=== PATIENT | male | born 1960 | race Caucasian/White ===

== ENCOUNTER 2024-12-23 07:13 | Outpatient (CLI) | payer MEDICARE, OTHER, SELFPAY ==
--- NOTE | 2024-12-23 07:20 | CT_ITS ---
WS: [id number] CT HEAD TECHNIQUE: Noncontrast CT of the head obtained from the skullbase to the vertex. CLINICAL INFORMATION: BALANCE PROBLEM/HX OF ISCHEMIC TIA/SYNCOPE COMPARISON: CT 2010 DLP: 1205.[address] scans at [facility] use at least one of these dose optimization techniques: automated exposure control; mA and/or kV adjustment per patient size (includes targeted exams where dose is matched to clinical indication); or iterative reconstruction. FINDINGS: No evidence of intracranial hemorrhage or mass effect. Ventricular system and basal cisterns are patent. Mild small vessel changes with mild parenchymal volume loss. No extra-axial fluid collections. No evidence of mass or mass effect. Normal nance-white differentiation. Vascular calcification. Paranasal sinuses and mastoid air cells are well aerated. .Normal visualized soft tissues. CT/CT head wo con* [id number] IMPRESSION: 1. No evidence of intracranial hemorrhage or mass effect. 2. Mild small vessel changes with mild parenchymal volume loss progressed sinc e 2009 3. Vascular calcification. 4. No acute intracranial findings.
== END 2024-12-23 07:14 | disposition home or self-care (01) ==
PROVIDERS: PCP Family Medicine; Visit Provider Family Medicine
DX: R55 Syncope and collapse (principal); R27.9 Unspecified lack of coordination; Z86.73 Personal history of transient ischemic attack (TIA), and cerebral infarction without residual deficits; I67.2 Cerebral atherosclerosis; I67.89 Other cerebrovascular disease; R90.89 Other abnormal findings on diagnostic imaging of central nervous system
CPT/HCPCS: 70450

== ENCOUNTER → 2025-01-10 08:31 | Outpatient (BNVA) | payer MEDICARE, OTHER, SELFPAY | PROVIDERS: PCP Family Medicine; Referring Provider Family Medicine; Visit Provider Nurse Practitioner | DX: R55 Syncope and collapse (principal) | CPT/HCPCS: 99204 ==

== ENCOUNTER → 2025-01-21 11:47 | Outpatient (BNVA) | payer MEDICARE, OTHER, SELFPAY | PROVIDERS: Absent Provider Specialist; PCP Family Medicine; Referring Provider Nurse Practitioner; Visit Provider Nurse Practitioner | DX: R56.9 Unspecified convulsions (principal); R26.89 Other abnormalities of gait and mobility; R26.9 Unspecified abnormalities of gait and mobility | CPT/HCPCS: 95816 ==

== ENCOUNTER → 2025-01-28 14:02 | Outpatient (BNVA) | payer MEDICARE, OTHER, SELFPAY | PROVIDERS: PCP Family Medicine; Visit Provider Internal Medicine Cardiovascular Disease | DX: I67.89 Other cerebrovascular disease (principal); R00.1 Bradycardia, unspecified; R55 Syncope and collapse; Z87.891 Personal history of nicotine dependence; R07.9 Chest pain, unspecified | CPT/HCPCS: 93005; 99204 ==

== ENCOUNTER 2025-02-21 13:09 | Outpatient (CLI) | payer MEDICARE, OTHER, SELFPAY ==
--- NOTE | 2025-02-21 13:30 | USCV_ITS ---
Yfn Chavez Age: 64 Gender: M : 1960 Exam Date: 02/21/2025 14:04 Ordering Phys: Francisco Darby MD ([email or web address]) Technologist: [place] Exam Location: [facility] – [place] Indication: Syncope BP: 120 / 64 HR: 67 Rhythm: Sinus Technical Quality: Adequate MEASUREMENTS (Male / Female) Normal Values 2D ECHO LV Diastolic Diameter PLAX 4.8 cm 4.2 - 5.9 / 3.9 - 5.3 cm IVS Diastolic Thickness 1.7 cm 0.6 - 1.0 / 0.6 - 0.9 cm IVS Systolic Thickness 2.0 cm LVPW Diastolic Thickness 1.4 cm 0.6 - 1.0 / 0.6 - 0.9 cm LVPW Systolic Thickness 2.1 cm LVOT Diameter 2.1 cm LV Ejection Fraction 2D Teich 75.7 % LV Ejection Fraction MOD 4C 68.1 % LV Ejection Fraction MOD 2C 38.7 % LV Ejection Fraction 2C AL 43.3 % LA Diameter 3.1 cm RA Systolic Volume 4C AL 44.9 ml RA Systolic Volume 4C MOD 39.6 ml LA Sys Volume AL 37.1 cm cubed LA Sys Volume Index AL 15.0 cm cubed/m squared Aorta at Sinotubular Diameter 3.0 cm IVC Diameter 2.1 cm M-MODE LA Ao Ratio MM 1.3 AV Cusp Separation MM 1.9 cm DOPPLER AV Peak Velocity 179.0 cm/s LVOT Peak Velocity 114.0 cm/s AV Area Cont Eq vti 2.4 cm squared AV Area Cont Eq pk 2.2 cm squared MV Peak Velocity 96.0 cm/s MV Area PHT 4.0 cm squared Mitral E to A Ratio 1.1 TR Peak Velocity 206.0 cm/s TR Peak Gradient 17.0 mmHg TV Peak E Velocity 96.0 cm/s PV Peak Velocity 113.0 cm/s FINDINGS Left Ventricle Normal left ventricular cavity size and EF of 55%. There is hypokinesis of the mid and basal inferior and apical lateral wall segments.Wall thickness normal measuring 1.0 cm on my measurements. Normal diastolic function. Right Ventricle Mildly increased right ventricular size. Mildly decreased right ventricular systolic function. Right Atrium Normal right atrial size. Left Atrium Normal left atrial size. IA Septum Normal appearance of interatrial septum. Mitral Valve Structurally normal mitral valve. No mitral valve stenosis. No mitral valve regurgitation. Aortic Valve No aortic valve stenosis. No aortic valve regurgitation. Tricuspid Valve Trace tricuspid valve regurgitation. Normal RVSP 20 mmHg. Pulmonic Valve No pulmonary valve regurgitation. No pulmonary valve stenosis. Pericardium No pericardial effusion. Aorta Normal size aortic root and proximal ascending aorta. IVC Normal inferior vena cava. CONCLUSIONS Normal left ventricular cavity size and EF of 55%. There is hypokinesis of the mid and basal inferior and apical lateral wall segments. Endocardial border not well visualized in some segments. Consider repeating LV systolic function assessment with IV echo contrast. Wall thickness normal measuring 1.0 cm on my measurements. Normal diastolic function. Mildly increased right ventricular size. Mildly decreased right ventricular systolic function. Trace tricuspid valve regurgitation. Normal RVSP 20 mmHg. Francisco Darby MD, FACC (Electronically Signed) Final Date: 22 February 2025 15:01 S
== END 2025-02-21 13:10 | disposition home or self-care (01) ==
LOC: RAD 13:11
PROVIDERS: PCP Family Medicine; Visit Provider Internal Medicine Cardiovascular Disease
DX: R55 Syncope and collapse (principal); I51.89 Other ill-defined heart diseases; I51.7 Cardiomegaly
CPT/HCPCS: 93306

== ENCOUNTER 2025-03-27 07:32 | Outpatient (CLI) | payer MEDICARE, OTHER, SELFPAY ==
--- NOTE | 2025-03-27 07:36 | USCV_ITS ---
Yfn Chavez Age: 64 Gender: M : 1960 Exam Date: 03/27/2025 08:19 Ordering Phys: Francisco Darby MD ([email or web address]) Technologist: Exam Location: [facility] [place] Indication: lv function BP: 140 / 80 HR: Rhythm: Sinus Technical Quality: Adequate MEASUREMENTS (Male / Female) Normal Values 2D ECHO LV Ejection Fraction MOD 4C 63.0 % LV Ejection Fraction MOD 2C 71.2 % LV Ejection Fraction 2C AL 71.5 % FINDINGS Left Ventricle Normal left ventricular size and systolic function, EF 63%. Right Ventricle Right Atrium Left Atrium IA Septum Mitral Valve Aortic Valve Tricuspid Valve Pulmonic Valve Pericardium Aorta IVC CONCLUSIONS Normal left ventricular size and systolic function, EF 63%. Compared to echocardiogram on 02/21/25, IV echo contrast now used making regional wall motion assessment more accurate. There is no regional wall motion abnormalities. This study was ordered as a limited study to assess LV wall motion with the addition of IV wcho contrast. Francisco Darby MD, FACC (Electronically Signed) Final Date: 01 April 2025 21:23 S
[2025-03-27] MEDS: perflutren protein-a microsphr 0.22 mg/mL SDV 3 mL IV (08:24)
== END 2025-03-27 07:33 | disposition home or self-care (01) ==
LOC: RAD 07:33
PROVIDERS: PCP Family Medicine; Visit Provider Internal Medicine Cardiovascular Disease
DX: R06.02 Shortness of breath (principal)
CPT/HCPCS: C8924

== ENCOUNTER → 2025-04-01 07:56 | Outpatient (BNVA) | payer MEDICARE, OTHER, SELFPAY | PROVIDERS: PCP Family Medicine; Visit Provider Internal Medicine Cardiovascular Disease | DX: I67.89 Other cerebrovascular disease (principal); R00.1 Bradycardia, unspecified; I51.7 Cardiomegaly; F17.200 Nicotine dependence, unspecified, uncomplicated; R06.02 Shortness of breath; G47.19 Other hypersomnia | CPT/HCPCS: 99214 ==